=== PATIENT | female | born 1990 | race Two or more races ===

== ENCOUNTER 2021-06-20 12:02 | Inpatient (IN) | payer BC ==
[~2021-06-20] VITALS: Ht 160 cm; Wt 1.8 kg
[2021-06-20] MEDS ORDERED: NIFE60TA3 PO (12:51)
[2021-06-20] MEDS ORDERED: PRENATAL TABLE1 EAC1 PO (12:51)
== END 2021-06-23 18:29 | disposition home or self-care (01) | DRG 788 ==
LOC: LDR 12:02 → OB/GYN 12:02
PROVIDERS: ADMIT Obstetrics & Gynecology; ATTEND Obstetrics & Gynecology
PROC: 4A1HXFZ Monitoring of Products of Conception, Cardiac Rhythm, External Approach (ICD-10-PCS; 2021-06-20)
PROC: 10D00Z1 Extraction of Products of Conception, Low, Open Approach (ICD-10-PCS; principal; 2021-06-20 12:00)
DX: O64.1XX0 Obstructed labor due to breech presentation, not applicable or unspecified (principal); O42.013 Preterm premature rupture of membranes, onset of labor within 24 hours of rupture, third trimester; Z3A.34 34 weeks gestation of pregnancy; Z37.2 Twins, both liveborn